=== PATIENT | male | born 1995 ===

== ENCOUNTER → 2017-03-22 | Outpatient (REF) | payer SELFPAY ==
[2017-03-22 14:02] LABS: SEMEN APPEARANCE OPAQUE (OPAQUE); SEMEN VISCOSITY LIQUID (LIQUID); SEMEN VOLUME 3.2 ml (4.0-5.0); SEMEN pH 7.5 (7.0-8.0); WBC CONCENTRATION <=1 M/ml (<=1 M/ml)
[2017-03-22 14:03] LABS: % NORMAL FORMS 9 % (>=4); IMMOTILITY 53 %; NON PROGRESSIVE MOTILITY (c) 8 %; PROGRESSIVE MOTILITY (a) 39 % (>=32); SPERM CONCENTRATION 84.3 M/ml (>=15.0); SPERM# 269.7 M/Ejac (>=39); TOTAL FUNCTIONAL 22.2 M/Ejac.; TOTAL MOTILITY 47 % (>=40); TOTAL PROGRESSIVE SPERM 106.5 M/Ejac.
== END ==
LOC: M LAB REF 13:55
DX: N46.8 Other male infertility (principal)